=== PATIENT | female | born 1990 | race Caucasian/White ===

== ENCOUNTER 2019-09-19 11:31 | Observation (INO) ==
[2019-09-19 13:14] LABS: Basophils % 0.2 % (0.0-0.8); Eosinophils % 0.2 % (0.00-10.9); Hematocrit 41.9 VOL% (35.7-47.0); Immature Granulocytes % 0.4 %; Immature Granulocytes Absolute 0.07 #; Lymphocytes % 12.1 % (21.3-54.2); Mean Corpuscular HGB Conc 33.4 GM/DL (32-36); Mean Corpuscular Volume 92.3 FL (87-102); Mean Platelet Volume 9.2 FL (9.6-12.0); Monocytes % 7.2 % (1.7-12.7); Neutrophils % 79.9 % (38.7-73.9); Platelet Count 245 T/CUMM (130-400); Red Blood Count 4.54 MC/CUMM (3.8-5.5); Red Cell Distribution Width 12.8 % (9.3-17.3); White Blood Count 16.8 T/CUMM (4-12)
[2019-09-19 13:30] LABS: INR 0.9; Partial Thromboplastin Time 22.2 SECS (20.8-36.0)
[2019-09-19 13:39] LABS: Alanine Aminotransferase 41 U/L (13-56); Albumin 3.6 G/DL (3.4-5.0); Alkaline Phosphatase 111 U/L (45-117); Aspartate Amino Transferase 31 U/L (0-37); Bilirubin,Total < 0.39 MG/DL (0.2-1.0); Blood Urea Nitrogen 5 MG/DL (7-18); Calcium 8.6 MG/DL (8.5-10.1); Estimated Glom Filtration Rate 125 ML/MIN; Glucose 88 MG/DL (74-106); Osmolality,Calculated 272.5 MOS/KG (273-304); Total Protein 7.7 G/DL (6.4-8.3)
[2019-09-19 13:48] LABS: Platelet Estimate Adequate
[2019-09-19] MEDS ORDERED: SODIUM CHLORIDE 0.9% 1,000 ML IV STA (15:33)
[2019-09-19] MEDS ORDERED: ONDANSETRON 4 MG/2 ML VIAL IV PRN (15:54)
[2019-09-19] MEDS ORDERED: MAGNESIUM SULF RIDER 2 GM in PREMIX 1 EACH IV PRN (15:54)
[2019-09-19] MEDS ORDERED: MAGNESIUM SULF RIDER 4 GM in PREMIX 1 EACH IV PRN (15:54)
[2019-09-19] MEDS ORDERED: ACETAMINOPHEN 325 MG TABLET PO PRN (15:54)
[2019-09-19] MEDS: metroNIDAZOLE INJ 500 MG in PREMIX 1 EACH IV SCH (20:53)
[2019-09-19] MEDS: SODIUM CHLORIDE 0.9% 1,000 ML IV SCH (20:53)
[2019-09-19] MEDS: CIPROFLOXACIN INJ 400 MG in PREMIX 1 EACH IV SCH (22:43)
[2019-09-20 00:51] LABS: Apearance,Urine CLEAR (Clear); Bacteria,Urine Occasional /HPF (Few); Bilirubin,Urine Negative (Negative); Blood, Urine Negative (Negative); Glucose,Urine (UA) Negative (Negative); Ketones,Urine Negative (Negative); Nitrite,Urine Negative (Negative); Protein,Urine Negative; RBC,Urine 1 /HPF (0-4); Squamous Epithelial Cell,Urine Occasional /HPF (0-10); Urine Color Straw (Yellow); Urine Urobilinogen < 2.0 EU/DL (0.2-1.0); WBC,Urine 1 /HPF (0-6)
[2019-09-20 04:20] LABS: Basophils % 0.3 % (0.0-0.8); Eosinophils # 0.1 10*3/uL (0.0-0.87); Eosinophils % 0.5 % (0.00-10.9); Hematocrit 37.2 VOL% (35.7-47.0); Hemoglobin 12.2 GM/DL (12.0-16.0); Immature Granulocytes % 0.4 %; Immature Granulocytes Absolute 0.06 #; Lymphocytes # 2.2 10*3/uL (1.4-4.0); Lymphocytes % 14.7 % (21.3-54.2); Mean Corpuscular HGB Conc 32.8 GM/DL (32-36); Mean Platelet Volume 9.4 FL (9.6-12.0); Monocytes % 8.2 % (1.7-12.7); Neutrophils % 75.9 % (38.7-73.9); Platelet Count 212 T/CUMM (130-400); Red Cell Distribution Width 12.8 % (9.3-17.3); White Blood Count 15.2 T/CUMM (4-12)
[2019-09-20] MEDS: metroNIDAZOLE INJ 500 MG in PREMIX 1 EACH IV SCH ×3 (04:56→20:16)
[2019-09-20 09:26] LABS: Hematocrit 37.6 VOL% (35.7-47.0); Hemoglobin 12.1 GM/DL (12.0-16.0)
[2019-09-20] MEDS: COENZYME Q10 100 MG CAPSULE PO SCH (10:26)
[2019-09-20] MEDS: MULTIVITAMIN (CENTRUM) TABLET PO SCH (10:26)
[2019-09-20] MEDS: PANTOPRAZOLE 40 MG TABLET PO SCH (10:26)
[2019-09-20] MEDS: CIPROFLOXACIN INJ 400 MG in PREMIX 1 EACH IV SCH ×2 (10:27→21:13)
[2019-09-20] MEDS: CHOLECALCIFEROL 1,000 UNIT TABLET PO SCH (10:28)
[2019-09-20] MEDS: ASCORBIC ACID 500 MG TABLET PO SCH (10:28)
[2019-09-20 14:25] LABS: Hematocrit 37.7 VOL% (35.7-47.0); Hemoglobin 12.6 GM/DL (12.0-16.0)
[2019-09-20] MEDS: SODIUM CHLORIDE 0.9% 1,000 ML IV SCH (21:14)
[2019-09-20 22:35] LABS: Hematocrit 39.6 VOL% (35.7-47.0); Hemoglobin 13.1 GM/DL (12.0-16.0)
[2019-09-21 04:46] LABS: Basophils % 0.4 % (0.0-0.8); Eosinophils # 0.1 10*3/uL (0.0-0.87); Eosinophils % 0.7 % (0.00-10.9); Hematocrit 35.2 VOL% (35.7-47.0); Hemoglobin 11.7 GM/DL (12.0-16.0); Immature Granulocytes % 0.4 %; Immature Granulocytes Absolute 0.04 #; Lymphocytes # 2.5 10*3/uL (1.4-4.0); Lymphocytes % 24.9 % (21.3-54.2); Mean Corpuscular HGB Conc 33.2 GM/DL (32-36); Mean Corpuscular Volume 92.6 FL (87-102); Mean Platelet Volume 9.5 FL (9.6-12.0); Monocytes % 9.1 % (1.7-12.7); Neutrophils % 64.5 % (38.7-73.9); Platelet Count 222 T/CUMM (130-400); Red Cell Distribution Width 12.9 % (9.3-17.3)
[2019-09-21 05:01] LABS: Calcium 8.3 MG/DL (8.5-10.1); Osmolality,Calculated 279.1 MOS/KG (273-304)
[2019-09-21] MEDS: metroNIDAZOLE INJ 500 MG in PREMIX 1 EACH IV SCH ×2 (05:18→12:57)
[2019-09-21] MEDS: SODIUM CHLORIDE 0.9% 1,000 ML IV SCH ×3 (09:43→12:36)
[2019-09-21] MEDS: PANTOPRAZOLE 40 MG TABLET PO SCH (09:48)
[2019-09-21] MEDS: COENZYME Q10 100 MG CAPSULE PO SCH (09:48)
[2019-09-21] MEDS: MULTIVITAMIN (CENTRUM) TABLET PO SCH (09:48)
[2019-09-21] MEDS: ASCORBIC ACID 500 MG TABLET PO SCH (09:49)
[2019-09-21] MEDS: CHOLECALCIFEROL 1,000 UNIT TABLET PO SCH (09:49)
[2019-09-21] MEDS: CIPROFLOXACIN INJ 400 MG in PREMIX 1 EACH IV SCH (09:50)
[2019-09-21] MEDS: POTASSIUM CHLORIDE RIDER 10 MEQ in PREMIX 1 EACH IV SCH ×2 (11:12→13:39)
[2019-09-21 12:57] VITALS: BP 143/92
[2019-09-21] MEDS ORDERED: POTASSIUM BICARB EFFERVESCENT 25 MEQ TABLET PO ONE (15:00)
== END 2019-09-21 17:10 | disposition home or self-care (01) ==
LOC: N.ED 11:31 → N.EDINP 11:31 → N.2W 16:36
PROVIDERS: ADMIT Internal Medicine; ATTEND Internal Medicine